=== PATIENT | female | born 1975 | race Caucasian/White ===

== ENCOUNTER 2019-03-10 22:50 | Emergency (ER) | payer OTHER ==
[~2019-03-10] VITALS: Ht 157.5 cm; Wt 90.7 kg
[~2019-03-10 22:50] MED LIST: ADDERALL XR 3030 MG PO; ALPRAZOLAM 0.0.25 M1 PO; ALPRAZOLAM1 MG PO; ATIVAN0.5 MG PO; BACTRIM DS TAB1 EACH PO; CELEXA20 MG PO; DIPHENHIST50 MG PO; KENALOG60 GM TP; LEVOTHYROXIN0.125 M1 PO; SYNTHROID100 MCG PO; XANAX XR1 MG PO
[2019-03-10] MEDS ORDERED: LEVOTHYROXINE175 MCG PO (22:58)
[2019-03-11 00:08] LABS: ABSOLUTE NEUTROPHILS 8.2 thou/uL (1.4-8.2); BASOPHILS 0.3 % (0.0-2.0); EOSINOPHILS 1.4 % (0.0-3.0); HEMATOCRIT 44.5 % (37.0-47.0); HEMOGLOBIN 15.1 gm/dL (12.0-15.0); LYMPHOCYTES 13.1 % (24.0-44.0); MCH 33.9 pg (26.0-34.0); MCV 99.7 fL (80.0-100.0); MONOCYTES 5.1 % (1.0-8.0); PLATELET COUNT 246 thou/uL (150-400); POLYS 80.1 % (36.0-66.0); RBC 4.46 mil/uL (4.20-5.00); RDW 13.7 % (10.5-14.5); WBC 10.3 thou/uL (4.0-11.0)
[2019-03-11 00:34] LABS: CALCIUM 8.7 mg/dL (8.5-10.1); CREATININE 1.3 mg/dL (0.6-1.0); POTASSIUM 3.7 mmol/L (3.5-5.1)
[2019-03-11 01:55] VITALS: BP 108/67; BP 111/85
[2019-03-11 03:51] VITALS: BP 101/44; BP 108/67; BP 109/71; BP 115/86; BP 118/81
[2019-03-11] MEDS ORDERED: PROAIR HFA8.5 GM INH (04:53)
[2019-03-11] MEDS ORDERED: PREDNISONE 20 M20 M1 PO (04:53)
[2019-03-11 07:20] VITALS: BP 122/69
== END 2019-03-11 07:22 | disposition home or self-care (01) ==
LOC: ER 22:50
PROVIDERS: Emergency Medicine
DX: J40 Bronchitis, not specified as acute or chronic (principal); F41.9 Anxiety disorder, unspecified; F32.9 Major depressive disorder, single episode, unspecified; F17.210 Nicotine dependence, cigarettes, uncomplicated; Z90.89 Acquired absence of other organs; Z88.0 Allergy status to penicillin

== ENCOUNTER 2019-03-30 07:35 | Emergency (ER) | payer OTHER ==
[~2019-03-30] VITALS: Ht 167.6 cm; Wt 113.4 kg
[~2019-03-30 07:35] MED LIST changes: +LEVOTHYROXINE175 MCG PO; +PREDNISONE 20 M20 M1 PO; +PROAIR HFA8.5 GM INH
[2019-03-30 08:11] LABS: BASOPHILS 0.9 % (0.0-2.0); HEMATOCRIT 39.3 % (37.0-47.0); HEMOGLOBIN 13.4 gm/dL (12.0-15.0); LYMPHOCYTES 19.1 % (24.0-44.0); MCH 33.6 pg (26.0-34.0); MCV 98.7 fL (80.0-100.0); PLATELET COUNT 253 thou/uL (150-400); RBC 3.98 mil/uL (4.20-5.00); RDW 13.9 % (10.5-14.5)
[2019-03-30 08:13] LABS: CALCIUM 9.1 mg/dL (8.5-10.1); CREATININE 1.2 mg/dL (0.6-1.0); POTASSIUM 3.2 mmol/L (3.5-5.1)
[2019-03-30 08:27] LABS: ALBUMIN 3.6 g/dL (3.4-5.0); TOTAL BILIRUBIN 0.9 mg/dL (<0.1-1.0); TOTAL PROTEIN 7.5 g/dL (6.4-8.2)
[2019-03-30 08:55] LABS: AMP/METHAMP Negative (Negative); BARBITURATES Negative (Negative); BENZODIAZEPINES Negative (Negative); COCAINE Negative (Negative); METHADONE Negative (Negative); OPIATES Negative (Negative); PCP Negative (Negative)
[2019-03-30] MEDS ORDERED: DIPHENHYDRAMINE25 M3 PO (11:57)
[2019-03-30] MEDS ORDERED: PREDNISONE50 MG PO (11:57)
[2019-03-30] MEDS ORDERED: FAMOTIDINE 20 M20 MG PO (11:57)
[2019-03-30] MEDS ORDERED: EPIPEN 2-P0.3 MG/0.3 IM (11:57)
[2019-03-30 12:10] VITALS: BP 132/72
== END 2019-03-30 12:11 | disposition home or self-care (01) ==
LOC: ER 07:35
PROVIDERS: Emergency Medicine
DX: L50.9 Urticaria, unspecified (principal); H02.846 Edema of left eye, unspecified eyelid; T78.40XA Allergy, unspecified, initial encounter; F41.9 Anxiety disorder, unspecified; F32.9 Major depressive disorder, single episode, unspecified; F17.210 Nicotine dependence, cigarettes, uncomplicated; Z90.49 Acquired absence of other specified parts of digestive tract; Z88.0 Allergy status to penicillin; X58.XXXA Exposure to other specified factors, initial encounter

== ENCOUNTER 2019-07-22 12:32 | Emergency (ER) | payer OTHER ==
[~2019-07-22] VITALS: Ht 157.5 cm; Wt 108.9 kg
[~2019-07-22 12:32] MED LIST changes: +DIPHENHYDRAMINE25 M3 PO; +EPIPEN 2-P0.3 MG/0.3 IM; +FAMOTIDINE 20 M20 MG PO; +PREDNISONE50 MG PO
[2019-07-22] MEDS ORDERED: EPIPEN 2-P0.3 MG/0.3 IM (15:10)
[2019-07-22 15:32] VITALS: BP 110/68
== END 2019-07-22 15:29 | disposition home or self-care (01) ==
LOC: ER 12:32
DX: T78.3XXA Angioneurotic edema, initial encounter (principal); F41.9 Anxiety disorder, unspecified; F32.9 Major depressive disorder, single episode, unspecified; F17.210 Nicotine dependence, cigarettes, uncomplicated; Z90.49 Acquired absence of other specified parts of digestive tract; Z88.0 Allergy status to penicillin

== ENCOUNTER 2019-08-13 09:05 | Emergency (ER) | payer OTHER ==
[~2019-08-13] VITALS: Ht 157.5 cm; Wt 104.3 kg
[2019-08-13 09:10] VITALS: BP 135/103
[2019-08-13 09:54] LABS: URINE BILIRUBIN NEGATIVE (Negative); URINE BLOOD TRACE (Negative); URINE CLARITY CLEAR; URINE COLOR YELLOW; URINE GLUCOSE-RANDOM* NEGATIVE (Negative); URINE KETONES NEGATIVE (Negative); URINE LEUKOCYTES-REFLEX NEGATIVE (Negative); URINE NITRITE-REFLEX NEGATIVE (Negative); URINE PROTEIN (DIPSTICK) NEGATIVE (Negative); URINE SPECIFIC GRAVITY 1.015 (1.005-1.035)
[2019-08-13 09:57] LABS: ABSOLUTE NEUTROPHILS 5.5 thou/uL (1.4-8.2); BASOPHILS 0.3 % (0.0-2.0); EOSINOPHILS 1.8 % (0.0-3.0); HEMATOCRIT 45.6 % (37.0-47.0); HEMOGLOBIN 15.7 gm/dL (12.0-15.0); LYMPHOCYTES 18.8 % (24.0-44.0); MCH 33.6 pg (26.0-34.0); MCHC 34.4 g/dL (28.0-37.0); MCV 97.5 fL (80.0-100.0); MONOCYTES 5.3 % (1.0-8.0); PLATELET COUNT 238 thou/uL (150-400); POLYS 73.8 % (36.0-66.0); RBC 4.68 mil/uL (4.20-5.00); RDW 14.2 % (10.5-14.5); WBC 7.4 thou/uL (4.0-11.0)
[2019-08-13 10:03] LABS: AMP/METHAMP Negative (Negative); BARBITURATES Negative (Negative); BENZODIAZEPINES Negative (Negative); COCAINE Negative (Negative); METHADONE Negative (Negative); OPIATES Negative (Negative); PCP Negative (Negative)
[2019-08-13 10:05] LABS: ANION GAP 7 mmol/L (7-16); BUN 11 mg/dL (7-18); CALCIUM 8.3 mg/dL (8.5-10.1); CHLORIDE 101 mmol/L (98-107); CO2 29 mmol/L (21-32); CREATININE 1.1 mg/dL (0.6-1.0); GLUCOSE 108 mg/dL (74-106); POTASSIUM 3.6 mmol/L (3.5-5.1); SODIUM 137 mmol/L (136-145)
[2019-08-13 10:11] LABS: ALBUMIN 3.9 g/dL (3.4-5.0); SALICYLATE 6.2 mg/dL (2.8-20.0); SGOT 22 U/L (15-37); SGPT 24 U/L (30-65); TOTAL BILIRUBIN 0.5 mg/dL (<0.1-1.0); TOTAL PROTEIN 7.3 g/dL (6.4-8.2)
== END 2019-08-13 09:59 | disposition home or self-care (01) ==
LOC: ER 09:05
PROVIDERS: Emergency Medicine
DX: F41.9 Anxiety disorder, unspecified (principal); R41.0 Disorientation, unspecified; F20.9 Schizophrenia, unspecified; F32.9 Major depressive disorder, single episode, unspecified; F17.210 Nicotine dependence, cigarettes, uncomplicated; Z79.899 Other long term (current) drug therapy; Z88.0 Allergy status to penicillin; Z90.89 Acquired absence of other organs